=== PATIENT | male | born 1975 | race Caucasian/White ===

== ENCOUNTER 2016-06-13 20:27 | Emergency (ER) | payer BC, OTHER ==
[2016-06-13] MEDS ORDERED: OPTIRAY 350 100 ML VIAL HMH IV ONE (20:28)
== END 2016-06-14 03:05 | disposition home or self-care (01) ==
LOC: ER 20:27
DX: R10.84 Generalized abdominal pain (principal)
CPT/HCPCS: 36415; 74177; 80053; 81003; 82553; 83690; 84484; 85025; 93005